=== PATIENT | male | born 1970 | race Caucasian/White ===

== ENCOUNTER 2016-04-30 11:30 | Emergency (ER) | payer OTHER ==
[~2016-04-30] VITALS: Ht 175.3 cm; Wt 72.6 kg
[~2016-04-30 11:30] MED LIST: ACETAMINOPHEN325 M1 PO; APIDRA; BACTRIM DS TAB1 EACH PO; BACTRIM PO; BENTYL20 MG PO; CIPRO; CLEOCIN HCL300 MG PO; CLONIDINE0.1 PO; COLACE 100 MG100 MG PO; COLACE100 MG PO; COZAAR 50 MG TA50 M2 PO; GABAPENTIN 100100 MG PO; GABAPENTIN600 M1 PO; GRALISE300 MG PO; GRALISE600 MG PO; HUMALIN R; HUMALOG MI100 UNIT/6 SQ; HUMALOG100 UNIT/1; HUMALOG100 UNIT/1 SQ; HUMILIN R; HUMULIN 70100 UNIT/2 SUBQ; HUMULIN R100 UNIT/M SUBQ; HUMULINR100; HYDROCODON-ACE1 EAC5 PO; IBUPROFEN 600600 M1 PO; IBUPROFEN200 M2 PO; KEFLEX500 MG PO; LEVEMIR; LEVEMIR SUBQ; LYRICA 75 MG CA75 MG PO; NEURONTIN 300M300 M2 PO; NEURONTIN300 MG PO; NEURONTIN600 MG PO; NICOTINE TRANSD14 M1; NICOTINE TRANSD21 M1 TD; NORCO 5-325 TA1 EACH PO; NOVOLIN 70100 UNIT/5; NOVOLIN 70100 UNIT/5 SUBQ; NOVOLIN R100 UNIT/3 SUBQ; NOVOLOG100 UNIT/1; NOVOLOG100 UNIT/1 SUBQ; ONDANSETRON HCL4 M2 PO; OXYCODONE HCL 55 MG PO; OXYCODONE HCL5 M1 PO; PENICILLIN VK500 M1 PO; PERCOCET 5-3251 EACH PO; ROXICODONE5 MG PO; TORADOL 10 MG T10 MG PO; TRAMADOL 50 MG50 MG; TYLENOL W/CODEI1 TA2 PO; ULTRAM 50MG TAB50 MG PO; VICODIN; ZOFRAN4 MG PO
[2016-04-30] MEDS ORDERED: LEVEMIR100 UNIT/1 SUBQ (11:43)
[2016-04-30] MEDS ORDERED: CARVEDILOL25 MG PO (11:43)
[2016-04-30 11:54] LABS: HEMATOCRIT 36.2 % (42.0-52.0); HEMOGLOBIN 12.6 gm/dL (14.0-18.0); MCH 29.5 pg (26.0-34.0); MCHC 34.7 % (28.0-37.0); MCV 84.8 fL (80.0-100.0); PLATELET COUNT 246 thou/uL (150-400); RBC 4.27 mil/uL (4.50-6.00); RDW 13.3 % (10.5-14.5)
[2016-04-30 12:04] LABS: MANUAL DIFF YES
[2016-04-30 12:10] LABS: CALCIUM 8.4 mg/dL (8.5-10.1); POTASSIUM 4.3 mmol/L (3.5-5.1)
[2016-04-30 12:17] LABS: ALBUMIN 2.9 g/dL (3.4-5.0); TOTAL BILIRUBIN 0.9 mg/dL (<0.1-1.0)
[2016-04-30 12:24] LABS: ABSOLUTE NEUTROPHILS 8.3 thou/uL (1.4-8.2); PLATELET ESTIMATE NORMAL; TOTAL CELL COUNT 100
[2016-04-30] MEDS ORDERED: LIDODERM 5%1 PATC1 TRANSDERM (12:44)
[2016-04-30] MEDS ORDERED: INDOMETHACIN 2525 MG PO (12:44)
== END 2016-04-30 13:00 | disposition home or self-care (01) ==
LOC: ER 11:30
PROVIDERS: Emergency Medicine
DX: M54.16 Radiculopathy, lumbar region (principal); I10 Essential (primary) hypertension; E10.9 Type 1 diabetes mellitus without complications; Z90.49 Acquired absence of other specified parts of digestive tract; F17.210 Nicotine dependence, cigarettes, uncomplicated; F12.90 Cannabis use, unspecified, uncomplicated; Z88.8 Allergy status to other drugs, medicaments and biological substances; Z91.018 Allergy to other foods

== ENCOUNTER 2017-02-17 07:41 | Emergency (ER) | payer OTHER ==
[~2017-02-17] VITALS: Ht 175.3 cm; Wt 72.6 kg
[~2017-02-17 07:41] MED LIST changes: +AMITRIPTYLINE H50 M3 PO; +CARVEDILOL25 MG PO; +INDOMETHACIN 2525 MG PO; +LEVEMIR100 UNIT/1 SUBQ; +LIDODERM 5%1 PATC1 TRANSDERM; +METFORMIN HCL500 MG PO
[2017-02-17] MEDS ORDERED: GABAPENTIN 100100 MG PO (08:25)
[2017-02-17 08:26] LABS: URINE BILIRUBIN NEGATIVE (Negative); URINE BLOOD 2+ (Negative); URINE COLOR YELLOW; URINE GLUCOSE-RANDOM* 2+ (Negative); URINE KETONES NEGATIVE (Negative); URINE LEUKOCYTES-REFLEX NEGATIVE (Negative); URINE PROTEIN (DIPSTICK) 2+ (Negative); URINE UROBILINOGEN 0.2 E.U./dl (0.2-1.0)
[2017-02-17 08:49] LABS: CASTS None Seen /LPF (None Seen); CRYSTALS None Seen /LPF (None Seen); SQUAMOUS 0-3 Few /LPF (0-3); URINE RBC 0-2 Rare /HPF (0-2); URINE WBC-REFLEX 0-5 Rare /HPF (0-5)
[2017-02-17 10:02] LABS: ABSOLUTE NEUTROPHILS 3.6 thou/uL (1.4-8.2); BASOPHILS 0.5 % (0.0-2.0); EOSINOPHILS 5.5 % (0.0-3.0); HEMATOCRIT 30.6 % (42.0-52.0); HEMOGLOBIN 10.5 gm/dL (14.0-18.0); LYMPHOCYTES 20.5 % (24.0-44.0); MANUAL DIFF NO; MCH 28.8 pg (26.0-34.0); MCHC 34.2 g/dL (28.0-37.0); MCV 84.3 fL (80.0-100.0); MONOCYTES 7.8 % (1.0-8.0); PLATELET COUNT 123 thou/uL (150-400); POLYS 65.7 % (36.0-66.0); RBC 3.63 mil/uL (4.50-6.00); RDW 16.2 % (10.5-14.5); WBC 5.4 thou/uL (4.0-11.0)
[2017-02-17 10:10] LABS: CALCIUM 8.6 mg/dL (8.5-10.1); CREATININE 1.2 mg/dL (0.7-1.3); POTASSIUM 4.9 mmol/L (3.5-5.1)
[2017-02-17 10:16] LABS: ALBUMIN 2.4 g/dL (3.4-5.0); TOTAL BILIRUBIN 0.3 mg/dL (<0.1-1.0); TOTAL PROTEIN 6.4 g/dL (6.4-8.2)
[2017-02-17] MEDS ORDERED: OMEPRAZOLE20 M1 PO (11:22)
[2017-02-18] MEDS ORDERED: LEVEMIR SUBQ (07:36)
== END 2017-02-17 11:53 | disposition home or self-care (01) ==
LOC: ER 07:41
PROVIDERS: Emergency Medicine
DX: R10.13 Epigastric pain (principal); I10 Essential (primary) hypertension; E10.40 Type 1 diabetes mellitus with diabetic neuropathy, unspecified; E10.621 Type 1 diabetes mellitus with foot ulcer; L97.529 Non-pressure chronic ulcer of other part of left foot with unspecified severity; L97.519 Non-pressure chronic ulcer of other part of right foot with unspecified severity; F17.210 Nicotine dependence, cigarettes, uncomplicated; Z86.19 Personal history of other infectious and parasitic diseases; Z90.49 Acquired absence of other specified parts of digestive tract; Z88.8 Allergy status to other drugs, medicaments and biological substances; Z91.018 Allergy to other foods

== ENCOUNTER 2017-02-18 07:18 | Inpatient (IN) | payer OTHER ==
[~2017-02-18] VITALS: Ht 175.3 cm; Wt 72.6 kg
[~2017-02-18 07:18] MED LIST changes: +OMEPRAZOLE20 M1 PO
[2017-02-18 07:21] VITALS: BP 210/107
[2017-02-18] MEDS ORDERED: LEVEMIR SUBQ (07:36)
[2017-02-18 07:51] LABS: ABSOLUTE NEUTROPHILS 4.4 thou/uL (1.4-8.2); BASOPHILS 0.5 % (0.0-2.0); HEMATOCRIT 32.1 % (42.0-52.0); LYMPHOCYTES 17.2 % (24.0-44.0); MCH 29.2 pg (26.0-34.0); MCHC 34.4 g/dL (28.0-37.0); MCV 84.9 fL (80.0-100.0); MONOCYTES 8.6 % (1.0-8.0); PLATELET COUNT 136 thou/uL (150-400); POLYS 68.7 % (36.0-66.0); RBC 3.78 mil/uL (4.50-6.00); WBC 6.5 thou/uL (4.0-11.0)
[2017-02-18 07:56] LABS: MANUAL DIFF NO
[2017-02-18 08:04] LABS: CALCIUM 8.6 mg/dL (8.5-10.1); CREATININE 1.3 mg/dL (0.7-1.3); POTASSIUM 4.6 mmol/L (3.5-5.1)
[2017-02-18 08:05] LABS: URINE BILIRUBIN NEGATIVE (Negative); URINE BLOOD 2+ (Negative); URINE COLOR YELLOW; URINE GLUCOSE-RANDOM* 3+ (Negative); URINE KETONES NEGATIVE (Negative); URINE LEUKOCYTES-REFLEX NEGATIVE (Negative); URINE PROTEIN (DIPSTICK) 1+ (Negative); URINE UROBILINOGEN 0.2 E.U./dl (0.2-1.0)
[2017-02-18 08:07] LABS: ALBUMIN 2.6 g/dL (3.4-5.0); TOTAL BILIRUBIN 0.3 mg/dL (<0.1-1.0); TOTAL PROTEIN 6.9 g/dL (6.4-8.2)
[2017-02-18 08:18] LABS: CASTS None Seen /LPF (None Seen); SQUAMOUS 0-3 Few /LPF (0-3)
[2017-02-18 08:19] LABS: CRYSTALS None Seen /LPF (None Seen); URINE RBC 3-10 Few /HPF (0-2); URINE WBC-REFLEX 0-5 Rare /HPF (0-5)
[2017-02-18 08:19] LABS: ABG SAMPLE TYPE VENOUS; BE(vivo) 0.8 mmol/L (-2 to +3); HCO3 25.2 mmol/L (22.0-26.0); LACTATE 2.33 mmol/L (0.5-2.0); O2(CT) 15.9 mL/dL (15.0-23.0); O2Hb VENOUS 93.7 (65.0-85.0); PCO2 VENOUS 39.5 mmHg (41.0-51.0); PO2 VENOUS 95.6 mmHg (35.0-45.0); sO2 VENOUS 97.4 % (65.0-85.0); tCO2 26.4 mmol/L (24.0-30.0)
[2017-02-18 09:47] VITALS: BP 166/85
[2017-02-18 10:00] VITALS: BP 166/85
[2017-02-18 10:30] VITALS: BP 187/100
[2017-02-18 11:56] LABS: AMP/METHAMP Negative (Negative); BARBITURATES Negative (Negative); BENZODIAZEPINES Negative (Negative); COCAINE Negative (Negative); METHADONE Negative (Negative); OPIATES Negative (Negative); PCP Negative (Negative); THC Negative (Negative)
[2017-02-18 15:56] VITALS: BP 138/107
[2017-02-18 18:10] LABS: GLYCOHEMOGLOBIN (HGB A1C) 9.4 % (4.8-5.6)
[2017-02-19 03:28] VITALS: BP 175/92
[2017-02-19 06:34] LABS: ALBUMIN 2.3 g/dL (3.4-5.0); CALCIUM 8.4 mg/dL (8.5-10.1); CREATININE 1.3 mg/dL (0.7-1.3); MAGNESIUM 1.7 mg/dL (1.8-2.4); POTASSIUM 4.8 mmol/L (3.5-5.1); TOTAL BILIRUBIN 0.3 mg/dL (<0.1-1.0); TOTAL PROTEIN 6.1 g/dL (6.4-8.2)
[2017-02-19 06:36] LABS: CHOLESTEROL 88 mg/dL (<200)
[2017-02-19 06:37] LABS: ABSOLUTE NEUTROPHILS 4.6 thou/uL (1.4-8.2); BASOPHILS 0.6 % (0.0-2.0); EOSINOPHILS 7.9 % (0.0-3.0); HEMATOCRIT 29.3 % (42.0-52.0); HEMOGLOBIN 10.5 gm/dL (14.0-18.0); LYMPHOCYTES 22.9 % (24.0-44.0); MCH 30.5 pg (26.0-34.0); MCHC 35.8 g/dL (28.0-37.0); MCV 85.1 fL (80.0-100.0); MONOCYTES 7.5 % (1.0-8.0); PLATELET COUNT 156 thou/uL (150-400); POLYS 61.1 % (36.0-66.0); RBC 3.44 mil/uL (4.50-6.00); RDW 16.3 % (10.5-14.5); WBC 7.9 thou/uL (4.0-11.0)
[2017-02-19 06:42] LABS: MANUAL DIFF NO
[2017-02-19 07:53] VITALS: BP 175/100
[2017-02-19 09:15] LABS: AMP/METHAMP Negative (Negative); BARBITURATES Negative (Negative); BENZODIAZEPINES Negative (Negative); COCAINE Negative (Negative); METHADONE Negative (Negative); OPIATES POSITIVE (Negative); PCP Negative (Negative); THC Negative (Negative)
[2017-02-19] MEDS ORDERED: DOXYCYCLINE 10100 MG PO ×2 (15:48→15:52)
[2017-02-19] MEDS ORDERED: VANCOMYCIN HCL10 GM PO (15:49)
[2017-02-19] MEDS ORDERED: LEVEMIR SUBQ ×2 (15:49→15:52)
[2017-02-19 15:57] VITALS: BP 142/61
[2017-02-19] MEDS ORDERED: GABAPENTIN 100100 MG PO (16:28)
[2017-02-19] MEDS ORDERED: OXYCODONE HCL10 MG PO ×2 (16:28→16:30)
[2017-02-19 18:15] VITALS: BP 142/61
== END 2017-02-19 19:46 | disposition home or self-care (01) | DRG 371 ==
LOC: ER 07:18 → EROBS 08:49 → 4E 10:02
PROVIDERS: Emergency Medicine; Hospitalist; Nurse Practitioner; Nurse Practitioner Family
DX: A04.72 Enterocolitis due to Clostridium difficile, not specified as recurrent (principal); K85.90 Acute pancreatitis without necrosis or infection, unspecified; I16.1 Hypertensive emergency; E44.0 Moderate protein-calorie malnutrition; L03.115 Cellulitis of right lower limb; K21.9 Gastro-esophageal reflux disease without esophagitis; I10 Essential (primary) hypertension; E10.40 Type 1 diabetes mellitus with diabetic neuropathy, unspecified; E10.65 Type 1 diabetes mellitus with hyperglycemia; F17.210 Nicotine dependence, cigarettes, uncomplicated; Z90.49 Acquired absence of other specified parts of digestive tract; Z86.19 Personal history of other infectious and parasitic diseases; Z88.8 Allergy status to other drugs, medicaments and biological substances; Z91.018 Allergy to other foods; Z68.23 Body mass index [BMI] 23.0-23.9, adult; Z79.4 Long term (current) use of insulin; Z91.11 Patient's noncompliance with dietary regimen
CPT/HCPCS: 10084

== ENCOUNTER 2017-02-23 16:11 | Emergency (ER) | payer OTHER ==
[~2017-02-23] VITALS: Ht 175.3 cm; Wt 72.6 kg
--- NOTE | ~2017-02-23 | EKG ---
[address] [place] [address] ELECTROCARDIOGRAM REPORT Name: CONSTANTINO MEJIA ROMELIA Room #: [facility] [id number] Admission: 02/23/17 Attend Phys: Discharge: 02/23/17 Date of : 74 Report #: [id number] THIS REPORT FOR: //name// [facility] ED Test Date: 2017-02-23 Test Time: 16:39:21 Pat Name: CONSTANTINO MEJIA Department: Room: Gender: M Special Librarian: CWEILAUREN : 1970 Requested By: Luca Viera Order Number: [id number] MD: Reno Rizvi Measurements Intervals [place] Rate: 92 P: 72 ME: 152 QRS: 43 QRSD: 82 T: 67 QT: 345 QTc: 427 Interpretive Statements Sinus rhythm Probable left atrial enlargement Probable left ventricular hypertrophy Compared to ECG 02/10/2014 09:44:23 No significant changes Electronically Signed On 02-24-2017 7:29:14 CDT by Reno Rizvi [email or web address] <ELECTRONICALLY SIGNED> By: Reno Rizvi MD 02/24/17 0729 38 Reno Rizvi MD /KAROLINA
[~2017-02-23 16:11] MED LIST changes: +DOXYCYCLINE 10100 MG PO; +OXYCODONE HCL10 MG PO; +VANCOMYCIN HCL10 GM PO
[2017-02-23 17:50] LABS: BASOPHILS 0.4 % (0.0-2.0); EOSINOPHILS 5.3 % (0.0-3.0); HEMATOCRIT 33.8 % (42.0-52.0); HEMOGLOBIN 11.4 gm/dL (14.0-18.0); LYMPHOCYTES 11.7 % (24.0-44.0); MCH 28.9 pg (26.0-34.0); MCHC 33.8 g/dL (28.0-37.0); MCV 85.4 fL (80.0-100.0); MONOCYTES 5.8 % (1.0-8.0); PLATELET COUNT 169 thou/uL (150-400); POLYS 76.8 % (36.0-66.0); RBC 3.95 mil/uL (4.50-6.00); RDW 16.5 % (10.5-14.5); WBC 7.9 thou/uL (4.0-11.0)
[2017-02-23 17:52] LABS: MANUAL DIFF NO
[2017-02-23 18:01] LABS: ANION GAP 1 mmol/L (7-16); BUN 21 mg/dL (7-18); CALCIUM 8.6 mg/dL (8.5-10.1); CHLORIDE 97 mmol/L (98-107); CO2 30 mmol/L (21-32); CREATININE 1.2 mg/dL (0.7-1.3); GLUCOSE 469 mg/dL (74-106); POTASSIUM 4.8 mmol/L (3.5-5.1); SODIUM 128 mmol/L (136-145)
[2017-02-23 18:06] LABS: ALBUMIN 2.5 g/dL (3.4-5.0); ALKALINE PHOSPHATASE 180 U/L (46-116); SGOT 74 U/L (15-37); SGPT 129 U/L (30-65); TOTAL BILIRUBIN 0.4 mg/dL (<0.1-1.0); TOTAL PROTEIN 6.8 g/dL (6.4-8.2); TROPONIN-I < 0.04 ng/mL (<0.06)
[2017-02-23] MEDS ORDERED: BACTRIM DS TAB1 EACH PO (20:21)
[2017-02-23] MEDS ORDERED: MOBIC15 MG PO (20:33)
== END 2017-02-23 21:00 | disposition home or self-care (01) ==
LOC: ER 16:11
PROVIDERS: Physician Assistant
DX: R07.89 Other chest pain (principal); L03.113 Cellulitis of right upper limb; I10 Essential (primary) hypertension; E10.40 Type 1 diabetes mellitus with diabetic neuropathy, unspecified; F17.210 Nicotine dependence, cigarettes, uncomplicated; E10.621 Type 1 diabetes mellitus with foot ulcer; L97.519 Non-pressure chronic ulcer of other part of right foot with unspecified severity; L97.529 Non-pressure chronic ulcer of other part of left foot with unspecified severity; Z90.49 Acquired absence of other specified parts of digestive tract; Z88.4 Allergy status to anesthetic agent; Z91.02 Food additives allergy status; Z88.8 Allergy status to other drugs, medicaments and biological substances

== ENCOUNTER 2017-08-03 19:04 | Inpatient (IN) | payer OTHER ==
[~2017-08-03] VITALS: Ht 175.3 cm; Wt 95.3 kg
--- NOTE | ~2017-08-03 | EKG ---
[address] [address] ELECTROCARDIOGRAM REPORT Name: CONSTANTINO MEJIA Room #: 411-P [facility] M.R.#: [id number] Admission: 08/03/17 Attend Phys: Seth Madison MD Discharge: Date of : 74 Report #: [id number] THIS REPORT FOR: //name// [facility] ED Test Date: 2017-08-03 Test Time: 19:16:48 Pat Name: CONSTANTINO MEJIA Department: Room: 411 Gender: M Retail Personal Banker: KEYUR : 1970 Requested By: Lala Hui Order Number: [id number] MD: Reno Rizvi Measurements Intervals [place] Rate: 85 P: 53 MD: 168 QRS: 35 QRSD: 76 T: 41 QT: 361 QTc: 430 Interpretive Statements Sinus rhythm Probable left atrial enlargement Baseline wander in lead(s) V1,V3 Compared to ECG 02/23/2017 16:39:21 No significant changes Electronically Signed On 08-04-2017 9:58:31 CDT by Reno Rizvi [email or web address] <ELECTRONICALLY SIGNED> By: Reno Rizvi MD 08/04/17 0958 15 15 Reno Rizvi MD /EPI
--- NOTE | ~2017-08-03 | HC ---
[facility] [place] [address] CONSULTATION Name: CONSTANTINO MEJIA Room #: [facility]- ADM IN M.R.#: [id number] Admission: 08/03/17 Attend Phys: Seth Madison MD Discharge: Date of : 74 Report #: [id number] THIS REPORT FOR: //name// CC: NO PCP Seth Madison HISTORY OF PRESENT ILLNESS: The patient is a 47-year-old male who was admitted from a long-term care facility for drug utilization and substance abuse. The patient has a history of multiple medical comorbidities and reports that he was in retirement and made him come to the facility where he was at. The patient reportedly was injecting 4 oxycodone pills. His most recent residence is at [facility]. PAST MEDICAL HISTORY: Significant for hypertension, hepatitis C, uncontrolled diabetes. He reports hemoglobin A1c's last year in the 13s. Chronic pancreatitis and substance abuse. He reports a history of an extensor tendon rupture of the left upper extremity, diabetic neuropathy, opioid overdose. ALLERGIES: INSULIN, LISINOPRIL, PROPOXYPHENE. PHYSICAL EXAMINATION: VITAL SIGNS: Temperature 36.1, pulse 87, respirations 16, BP 138/78. GENERAL: The patient is alert, oriented, answering questions appropriately. EXTREMITIES: On examination, the patient reports no acute abnormalities in the upper extremities. Pelvis is stable to AP and lateral compression. He is nontender with gentle rotation of the hips. Localizes tenderness primarily on the lower spine, primarily in the paraspinal area, extending into the gluteal and lateral hip. He reports that this does radiate into the inner thigh on occasion, reports that it does not really extend below the knee, although he does have bilateral stocking type peripheral neuropathy and multiple healed sores in varying degrees of healing throughout the lower extremities. He reports diminished sensation to light touch in the feet consistent with his diabetic peripheral neuropathy. Diminished pulses were noted. Capillary refill approximately 2 seconds. He is able to stand, has difficulty with heel and toe walking. No obvious motor deficit is noted in the lower extremities when tested throughout. He is hyporeflexic symmetrically. LABORATORY DATA: Reviewed. IMAGING: MRI of the lumbosacral spine reveals severe disk desiccation and loss of disk height at L5-S1, some retrolisthesis of 5 on 1 is noted of approximately 5 mm. Diffuse posterior disk bulging is noted in this region. Moderate facet arthrosis with severe neural foraminal stenosis. IMPRESSION: Lumbar spondylosis, L5-S1 with neural foraminal stenosis. PLAN: We reviewed potential treatment options with the patient. At this point, [address] [address] CONSULTATION Name: CONSTANTINO MEJIA Room #: 411-P [facility] IN M.R.#: [id number] Admission: 08/03/17 Attend Phys: Seth Madison MD Discharge: Date of : 74 Report #: [id number] I would recommend physical therapy as well as a pain management consultation to see if they think he would be a candidate for an epidural injection. With his history and uncontrolled diabetes, I think nonoperative management would be the safest course for him. Hopefully, these symptoms can be brought under control with this. If he failed to have improvement with these measures, I will get my partner, Dr. Prince, evaluate him for potential operative intervention. I would recommend social work continue to kiln firer helper this individual in meeting his needs post-hospitalization. By: 0739 [id number] Gonzalo Schwartz MD /nt
--- NOTE | ~2017-08-03 | 2DMMODE ---
[facility] [place] [address] 2 D/M-MODE ECHOCARDIOGRAM Name: CONSTANTINO MEJIA Room #: 411-P ADM IN M.R.#: [id number] Admission: 08/03/17 Attend Phys: Seth Madison MD Discharge: Date of : 74 Date of Service: 08/16/17 1042 Report #: [id number] THIS REPORT FOR: //name// APPROVED REPORT Study performed: 08/16/2017 09:54:36 EXAM: Comprehensive 2D, Doppler, and color-flow Echocardiogram BSA: 2.11 2D Dimensions RVDd: 38.93 mm LVEF(%): 69.19 (>50%) IVSd: 13.13 (7-11mm) LVOT Diam: 19.07 (18-24mm) LVDd: 40.59 mm PWd: 12.35 (7-11mm) Ascending Ao: 25.87 (22-36mm) LVDs: 25.00 (25-40mm) Aortic Root: 31.70 mm IVC: 14.00 mm Santana's LVEF: 69.19 % Volumes Left Atrial Volume (Systole) Single Plane 4CH: 87.84 mL Single Plane 2CH: 55.54 mL LA ESV Index: 38.00 mL/m2 Aortic Valve AoV Peak Momo.: 1.34 m/s AO Peak Gr.: 7.22 mmHg LVOT Max P.83 mmHg LVOT Max V: 0.98 m/s GIULIANA Vmax: 2.08 cm2 Mitral Valve E/A Ratio: 1.3 MV Decel. Time: 227.81 ms MV E Max Momo.: 1.37 m/s MV A Momo.: 1.05 m/s MV PHT: 66.06 ms IVRT: 69.20 ms Pulmonary Valve PV Peak Momo.: 1.04 m/s PV Peak Gr.: 4.30 mmHg Pulmonary Vein P Vein S: 0.61 m/s P Vein A: 0.25 m/s [facility] [address] [place] [address] 2 D/M-MODE ECHOCARDIOGRAM Name: CONSTANTINO MEJIA Room #: 411-P [facility] IN ..#: [id number] Admission: 08/03/17 Attend Phys: Seth Madison MD Discharge: Date of : 74 Date of Service: 08/16/17 1042 Report #: [id number] P Vein D: 0.48 m/s P Vein A Dur.: 101.5 msec P Vein S/D Ratio: 1.27 Tricuspid Valve TR Peak Momo.: 2.90 m/s TR Peak Gr.: 33.55 mmHg PA Pressure: 39.00 mmHg Left Ventricle The left ventricle is normal size. There is normal LV segmental wall motion. Mild concentric left ventricular hypertrophy. Left ventricular systolic function is hyperdynamic. LVEF is 65-70%. Grade II - pseudonormal filling dynamics. Right Ventricle The right ventricle is normal size. The right ventricular systolic function is normal. Atria Left atrium is dilated. Right atrium is at the upper limits of normal. Aortic Valve The aortic valve is normal in structure. No aortic regurgitation is present. There is no aortic valvular stenosis. Mitral Valve Mild mitral annular calcification Mild mitral regurgitation. No evidence of mitral valve stenosis. Tricuspid Valve The tricuspid valve is normal in structure. There is trace tricuspid regurgitation. Estimated PAP 40 mmHg. There is mild pulmonary hypertension. Pulmonic Valve The pulmonary valve is normal in structure. Trace pulmonic regurgitation. Great Vessels The aortic root is normal in size. IVC is normal in size and collapses >50% with inspiration. Pericardium Trace pericardial effusion. [facility] [address] [place] [address] 2 D/M-MODE ECHOCARDIOGRAM Name: CONSTANTINO MEJIA Room #: 411-P ADM IN M.R.#: [id number] Admission: 08/03/17 Attend Phys: Seth Madison MD Discharge: Date of : 74 Date of Service: 08/16/17 1042 Report #: [id number] <Conclusion> Left ventricular systolic function is hyperdynamic. There is normal LV segmental wall motion. Mild concentric LVH LVEF is 65-70%. Grade II - pseudonormal filling dynamics. The aortic valve is normal in structure. No aortic regurgitation or stenosis Mild mitral annular calcification. Mild mitral regurgitation. There is trace tricuspid regurgitation. Estimated pulmonary artery pressure of 40 mmHg. Trace pericardial effusion. <ELECTRONICALLY SIGNED> By: Raymond De La Garza MD, [facility] 08/16/17 104 41 41 Raymond De La Garza MD, FACC /INF
[~2017-08-03 19:04] MED LIST changes: +MOBIC15 MG PO
[2017-08-03 19:11] VITALS: BP 150/79
[2017-08-03 19:57] LABS: ABSOLUTE NEUTROPHILS 3.7 thou/uL (1.4-8.2); BASOPHILS 1.2 % (0.0-2.0); EOSINOPHILS 8.8 % (0.0-3.0); HEMATOCRIT 29.2 % (42.0-52.0); HEMOGLOBIN 10.1 gm/dL (14.0-18.0); LYMPHOCYTES 17.7 % (24.0-44.0); MCH 29.8 pg (26.0-34.0); MCHC 34.7 g/dL (28.0-37.0); MONOCYTES 8.8 % (1.0-8.0); PLATELET COUNT 173 thou/uL (150-400); POLYS 63.5 % (36.0-66.0); RDW 16.2 % (10.5-14.5); WBC 5.8 thou/uL (4.0-11.0)
[2017-08-03 20:06] LABS: ANION GAP 2 mmol/L (7-16); BUN 25 mg/dL (7-18); CALCIUM 8.7 mg/dL (8.5-10.1); CHLORIDE 103 mmol/L (98-107); CO2 29 mmol/L (21-32); CREATININE 1.3 mg/dL (0.7-1.3); GLUCOSE 351 mg/dL (74-106); POTASSIUM 5.1 mmol/L (3.5-5.1); SODIUM 134 mmol/L (136-145)
[2017-08-03 20:11] LABS: ALBUMIN 2.5 g/dL (3.4-5.0); DIRECT BILIRUBIN 0.1 mg/dL (<0.1-0.3); LIPASE 96 U/L (73-393); SALICYLATE < 2.8 mg/dL (2.8-20.0); SGOT 61 U/L (15-37); SGPT 77 U/L (30-65); TOTAL BILIRUBIN 0.3 mg/dL (<0.1-1.0); TOTAL PROTEIN 6.4 g/dL (6.4-8.2)
[2017-08-03 20:29] LABS: AMP/METHAMP Negative (Negative); BARBITURATES Negative (Negative); BENZODIAZEPINES Negative (Negative); COCAINE Negative (Negative); METHADONE Negative (Negative); OPIATES POSITIVE (Negative); PCP Negative (Negative)
[2017-08-04 04:52] LABS: HEMATOCRIT 28.5 % (42.0-52.0); HEMOGLOBIN 9.8 gm/dL (14.0-18.0); MCH 29.7 pg (26.0-34.0); MCHC 34.4 g/dL (28.0-37.0); MCV 86.3 fL (80.0-100.0); RBC 3.31 mil/uL (4.50-6.00); RDW 16.1 % (10.5-14.5); WBC 4.1 thou/uL (4.0-11.0)
[2017-08-04 05:02] LABS: ALBUMIN 2.2 g/dL (3.4-5.0); CALCIUM 8.2 mg/dL (8.5-10.1); CREATININE 1.4 mg/dL (0.7-1.3); POTASSIUM 4.8 mmol/L (3.5-5.1); TOTAL BILIRUBIN 0.2 mg/dL (<0.1-1.0); TOTAL PROTEIN 5.9 g/dL (6.4-8.2)
[2017-08-04 07:57] VITALS: BP 147/84
[2017-08-04 09:38] VITALS: BP 146/65
[2017-08-04] MEDS ORDERED: NOVOLOG100 UNIT/1 SUBQ (10:25)
[2017-08-04] MEDS ORDERED: LEVEMIR SUBQ (10:29)
[2017-08-04 17:06] VITALS: BP 180/88
[2017-08-04 19:57] VITALS: BP 153/80
[2017-08-05 04:26] VITALS: BP 164/61
[2017-08-05 06:23] LABS: ABSOLUTE NEUTROPHILS 3.5 thou/uL (1.4-8.2); BASOPHILS 1.2 % (0.0-2.0); EOSINOPHILS 8.8 % (0.0-3.0); HEMATOCRIT 29.4 % (42.0-52.0); HEMOGLOBIN 10.5 gm/dL (14.0-18.0); MCH 30.5 pg (26.0-34.0); MCHC 35.8 g/dL (28.0-37.0); MCV 85.3 fL (80.0-100.0); PLATELET COUNT 180 thou/uL (150-400); RBC 3.45 mil/uL (4.50-6.00); RDW 16.4 % (10.5-14.5); WBC 5.5 thou/uL (4.0-11.0)
[2017-08-05 06:25] LABS: CALCIUM 8.7 mg/dL (8.5-10.1); CREATININE 1.2 mg/dL (0.7-1.3); POTASSIUM 4.3 mmol/L (3.5-5.1)
[2017-08-05 08:08] VITALS: BP 138/82
[2017-08-05 16:14] VITALS: BP 135/73
[2017-08-05 21:10] VITALS: BP 140/77
[2017-08-06 04:00] VITALS: BP 106/68
[2017-08-06 08:00] VITALS: BP 97/55
[2017-08-06 20:00] VITALS: BP 162/82
[2017-08-07 04:00] VITALS: BP 146/73
[2017-08-07 06:20] LABS: BASOPHILS 0.9 % (0.0-2.0); EOSINOPHILS 12.9 % (0.0-3.0); HEMATOCRIT 30.2 % (42.0-52.0); HEMOGLOBIN 10.6 gm/dL (14.0-18.0); LYMPHOCYTES 20.6 % (24.0-44.0); MCHC 35.1 g/dL (28.0-37.0); MCV 85.4 fL (80.0-100.0); MONOCYTES 8.5 % (1.0-8.0); PLATELET COUNT 166 thou/uL (150-400); POLYS 57.1 % (36.0-66.0); RBC 3.54 mil/uL (4.50-6.00); RDW 15.8 % (10.5-14.5); WBC 5.3 thou/uL (4.0-11.0)
[2017-08-07 06:42] LABS: CALCIUM 9.4 mg/dL (8.5-10.1); CREATININE 1.2 mg/dL (0.7-1.3); POTASSIUM 4.7 mmol/L (3.5-5.1)
[2017-08-07 08:15] VITALS: BP 180/93
[2017-08-07 17:13] VITALS: BP 177/89
[2017-08-08 05:24] VITALS: BP 189/104
[2017-08-08 08:38] VITALS: BP 193/97
[2017-08-08 10:10] VITALS: BP 173/89
[2017-08-08 16:00] VITALS: BP 165/79
[2017-08-08 20:00] VITALS: BP 154/65
[2017-08-09 04:00] VITALS: BP 176/83
[2017-08-09 05:58] LABS: ABSOLUTE NEUTROPHILS 2.8 thou/uL (1.4-8.2); BASOPHILS 0.7 % (0.0-2.0); EOSINOPHILS 13.1 % (0.0-3.0); HEMATOCRIT 30.6 % (42.0-52.0); HEMOGLOBIN 11.1 gm/dL (14.0-18.0); LYMPHOCYTES 22.6 % (24.0-44.0); MCH 30.5 pg (26.0-34.0); MCHC 36.2 g/dL (28.0-37.0); MCV 84.3 fL (80.0-100.0); MONOCYTES 7.2 % (1.0-8.0); PLATELET COUNT 176 thou/uL (150-400); POLYS 56.4 % (36.0-66.0); RBC 3.63 mil/uL (4.50-6.00); RDW 15.7 % (10.5-14.5); WBC 4.9 thou/uL (4.0-11.0)
[2017-08-09 06:13] LABS: CALCIUM 8.9 mg/dL (8.5-10.1); CREATININE 1.3 mg/dL (0.7-1.3); POTASSIUM 4.4 mmol/L (3.5-5.1)
[2017-08-09 08:37] VITALS: BP 157/85
[2017-08-09 17:00] VITALS: BP 132/71
[2017-08-09 20:00] VITALS: BP 176/85
[2017-08-10 00:02] VITALS: BP 155/72
[2017-08-10 04:00] VITALS: BP 179/85
[2017-08-10 08:19] VITALS: BP 143/93
[2017-08-10 09:42] LABS: HEMATOCRIT 31.8 % (42.0-52.0); HEMOGLOBIN 11.1 gm/dL (14.0-18.0); MCH 29.7 pg (26.0-34.0); MCHC 34.9 g/dL (28.0-37.0); MCV 84.9 fL (80.0-100.0); RBC 3.75 mil/uL (4.50-6.00); RDW 15.7 % (10.5-14.5); WBC 5.4 thou/uL (4.0-11.0)
[2017-08-10 09:55] LABS: ALBUMIN 2.6 g/dL (3.4-5.0); CALCIUM 9.2 mg/dL (8.5-10.1); CREATININE 1.1 mg/dL (0.7-1.3); POTASSIUM 4.6 mmol/L (3.5-5.1); TOTAL BILIRUBIN 0.4 mg/dL (<0.1-1.0)
[2017-08-10 18:42] VITALS: BP 168/84
[2017-08-10 19:34] VITALS: BP 179/96
[2017-08-11 05:30] VITALS: BP 138/78
[2017-08-11 06:11] LABS: GLYCOHEMOGLOBIN (HGB A1C) 7.7 % (4.8-5.6)
[2017-08-11 07:10] VITALS: BP 178/89
[2017-08-11 07:43] LABS: CALCIUM 8.3 mg/dL (8.5-10.1); CREATININE 1.8 mg/dL (0.7-1.3); POTASSIUM 5.2 mmol/L (3.5-5.1)
[2017-08-11 11:31] VITALS: BP 111/60
[2017-08-11 15:14] VITALS: BP 101/55
[2017-08-11 20:00] VITALS: BP 124/65
[2017-08-12 04:00] VITALS: BP 160/87
[2017-08-12 07:55] LABS: CALCIUM 8.7 mg/dL (8.5-10.1); CREATININE 1.7 mg/dL (0.7-1.3); POTASSIUM 5.5 mmol/L (3.5-5.1)
[2017-08-12 07:59] VITALS: BP 139/78
[2017-08-12 21:27] VITALS: BP 167/82
[2017-08-13 09:11] LABS: CALCIUM 8.9 mg/dL (8.5-10.1); CREATININE 1.4 mg/dL (0.7-1.3); POTASSIUM 5.5 mmol/L (3.5-5.1)
[2017-08-13 17:01] VITALS: BP 192/99
[2017-08-13 18:08] VITALS: BP 185/95
[2017-08-13 19:53] VITALS: BP 183/92
[2017-08-14 05:19] VITALS: BP 184/104
[2017-08-14 08:46] VITALS: BP 160/83
[2017-08-14 11:18] LABS: HEMATOCRIT 29.8 % (42.0-52.0); HEMOGLOBIN 10.4 gm/dL (14.0-18.0); MCH 30.1 pg (26.0-34.0); MCHC 34.8 g/dL (28.0-37.0); MCV 86.4 fL (80.0-100.0); RBC 3.45 mil/uL (4.50-6.00); RDW 15.4 % (10.5-14.5); WBC 5.5 thou/uL (4.0-11.0)
[2017-08-14 11:29] LABS: CALCIUM 8.7 mg/dL (8.5-10.1); CREATININE 1.3 mg/dL (0.7-1.3); POTASSIUM 4.2 mmol/L (3.5-5.1)
[2017-08-14 15:25] LABS: ALBUMIN 2.7 g/dL (3.4-5.0); DIRECT BILIRUBIN 0.1 mg/dL (<0.1-0.3); TOTAL BILIRUBIN 0.4 mg/dL (<0.1-1.0); TOTAL PROTEIN 7.1 g/dL (6.4-8.2)
[2017-08-14 15:26] LABS: INR 1.1; PROTIME 10.9 Seconds (9.3-11.4)
[2017-08-14 16:48] VITALS: BP 173/96
[2017-08-14 20:00] VITALS: BP 203/100
[2017-08-15 04:00] VITALS: BP 174/99
[2017-08-15 05:43] LABS: HEMATOCRIT 30.2 % (42.0-52.0); HEMOGLOBIN 10.6 gm/dL (14.0-18.0); MCHC 35.2 g/dL (28.0-37.0); MCV 85.3 fL (80.0-100.0); RBC 3.54 mil/uL (4.50-6.00); RDW 15.2 % (10.5-14.5)
[2017-08-15 05:57] LABS: CREATININE 1.4 mg/dL (0.7-1.3); POTASSIUM 4.2 mmol/L (3.5-5.1)
[2017-08-15 09:37] VITALS: BP 168/93
[2017-08-15 17:12] VITALS: BP 138/68
[2017-08-15 19:50] LABS: URINE BILIRUBIN NEGATIVE (Negative); URINE BLOOD 2+ (Negative); URINE CLARITY CLEAR; URINE COLOR YELLOW; URINE GLUCOSE-RANDOM* NEGATIVE (Negative); URINE KETONES NEGATIVE (Negative); URINE LEUKOCYTES-REFLEX NEGATIVE (Negative); URINE NITRITE-REFLEX NEGATIVE (Negative); URINE PROTEIN (DIPSTICK) 3+ (Negative); URINE SPECIFIC GRAVITY 1.025 (1.005-1.035); URINE UROBILINOGEN 0.2 E.U./dl (0.2-1.0)
[2017-08-15 20:00] LABS: BACTERIA-REFLEX None Seen /HPF (None Seen); CASTS None Seen /LPF (None Seen); CRYSTALS None Seen /LPF (None Seen); SQUAMOUS 0-3 Few /LPF (0-3); URINE RBC 3-10 Few /HPF (0-2); URINE WBC-REFLEX 0-5 Rare /HPF (0-5)
[2017-08-15 20:42] VITALS: BP 195/91
[2017-08-16 04:48] VITALS: BP 172/87
[2017-08-16 08:00] VITALS: BP 144/74
[2017-08-16 08:09] LABS: HEMATOCRIT 30.9 % (42.0-52.0); HEMOGLOBIN 10.9 gm/dL (14.0-18.0); MCH 30.1 pg (26.0-34.0); MCHC 35.2 g/dL (28.0-37.0); MCV 85.6 fL (80.0-100.0); RBC 3.61 mil/uL (4.50-6.00); RDW 15.1 % (10.5-14.5)
[2017-08-16 08:13] LABS: CALCIUM 8.8 mg/dL (8.5-10.1); CREATININE 1.4 mg/dL (0.7-1.3); MAGNESIUM 1.9 mg/dL (1.8-2.4); POTASSIUM 4.7 mmol/L (3.5-5.1)
[2017-08-16] MEDS ORDERED: BACLOFEN 10MG T10 MG PO (12:23)
[2017-08-16] MEDS ORDERED: EFFEXOR XR75 MG PO (12:24)
[2017-08-16] MEDS ORDERED: COZAAR 25 MG TA25 M1 PO (12:24)
[2017-08-16] MEDS ORDERED: LASIX 40 MG TAB40 M1 PO (12:28)
[2017-08-16 15:13] VITALS: BP 144/74
[2017-08-16 16:04] VITALS: BP 129/56
[2017-08-17 23:10] LABS: CREATININE (ALB/CR) 62.1 mg/dL (Not Estab.)
[2017-08-18 16:12] LABS: HAV IgM AB (ANTI-HAV IgM) Negative (Negative); HEPATITIS B SURFACE AG Negative (Negative); HEPATITIS C VIRUS AB >11.0 (0.0-0.9)
== END 2017-08-16 18:46 | disposition home or self-care (01) | DRG 917 ==
LOC: ER 19:04 → 4N 22:02 → EROBS 22:02 → ER 22:02 → 4N 08-04 08:00
PROVIDERS: Emergency Medicine; Hospitalist; Internal Medicine; Nurse Practitioner Family
DX: T40.2X1A Poisoning by other opioids, accidental (unintentional), initial encounter (principal); G92 Toxic encephalopathy; K86.1 Other chronic pancreatitis; N17.9 Acute kidney failure, unspecified; R45.851 Suicidal ideations; F11.20 Opioid dependence, uncomplicated; E11.40 Type 2 diabetes mellitus with diabetic neuropathy, unspecified; I10 Essential (primary) hypertension; M48.07 Spinal stenosis, lumbosacral region; M47.897 Other spondylosis, lumbosacral region; F17.210 Nicotine dependence, cigarettes, uncomplicated; T40.695A Adverse effect of other narcotics, initial encounter; E78.00 Pure hypercholesterolemia, unspecified; E86.0 Dehydration; Z53.29 Procedure and treatment not carried out because of patient's decision for other reasons; M47.27 Other spondylosis with radiculopathy, lumbosacral region; F32.9 Major depressive disorder, single episode, unspecified; B19.20 Unspecified viral hepatitis C without hepatic coma; E87.5 Hyperkalemia; Z90.49 Acquired absence of other specified parts of digestive tract; Z79.899 Other long term (current) drug therapy; Z79.4 Long term (current) use of insulin; Z88.8 Allergy status to other drugs, medicaments and biological substances; Z91.018 Allergy to other foods; Y92.89 Other specified places as the place of occurrence of the external cause; Z59.0 Homelessness
CPT/HCPCS: 10790

== ENCOUNTER 2017-08-19 05:02 | Inpatient (IN) | payer OTHER ==
[~2017-08-19] VITALS: Ht 175.3 cm; Wt 77.1 kg
[2017-08-19] VITALS (7 sets, daily range): BP systolic 159–188; BP diastolic 73–97
--- NOTE | ~2017-08-19 | EKG ---
[address] [place] [address] ELECTROCARDIOGRAM REPORT Name: CONSTANTINO MEJIA Room #: 170-5 ADM IN M.R.#: [id number] Admission: 08/19/17 Attend Phys: Lis Uriarte Discharge: Date of : 74 Report #: [id number] THIS REPORT FOR: //name// [facility] ED Test Date: 2017-08-19 Test Time: 05:15:03 Pat Name: CONSTANTINO MEJIA Department: Room: 170 Gender: M Clinic Director: mary : 1970 Requested By: Lucas Juarez Order Number: [id number] MD: Raymond De La Garza Measurements Intervals [place] Rate: 77 P: 59 [place]: 162 QRS: 34 QRSD: 82 T: 53 QT: 406 QTc: 460 Interpretive Statements Sinus rhythm ST elev, probable normal early repol pattern Compared to ECG 08/03/2017 19:16:48 No significant change was found Electronically Signed On 08-19-2017 8:55:53 CDT by Raymond De La Garza [email or web address] <ELECTRONICALLY SIGNED> By: Raymond De La Garza MD, [facility] 08/19/17 0855 4 Raymond De La Garza MD, [facility] /EPI
[~2017-08-19 05:02] MED LIST changes: +BACLOFEN 10MG T10 MG PO; +COZAAR 25 MG TA25 M1 PO; +EFFEXOR XR75 MG PO; +LASIX 40 MG TAB40 M1 PO
[2017-08-19 05:40] LABS: ABSOLUTE NEUTROPHILS 6.5 thou/uL (1.4-8.2); BASOPHILS 1.3 % (0.0-2.0); EOSINOPHILS 3.6 % (0.0-3.0); HEMATOCRIT 31.7 % (42.0-52.0); HEMOGLOBIN 11.4 gm/dL (14.0-18.0); LYMPHOCYTES 16.8 % (24.0-44.0); MCH 30.1 pg (26.0-34.0); MCHC 35.9 g/dL (28.0-37.0); MCV 83.9 fL (80.0-100.0); MONOCYTES 6.5 % (1.0-8.0); PLATELET COUNT 205 thou/uL (150-400); POLYS 71.8 % (36.0-66.0); RBC 3.78 mil/uL (4.50-6.00); RDW 14.5 % (10.5-14.5); WBC 9.1 thou/uL (4.0-11.0)
[2017-08-19 05:47] LABS: ANION GAP 9 mmol/L (7-16); BUN 25 mg/dL (7-18); CHLORIDE 105 mmol/L (98-107); CO2 25 mmol/L (21-32); CREATININE 1.3 mg/dL (0.7-1.3); GLUCOSE 275 mg/dL (74-106); POTASSIUM 3.6 mmol/L (3.5-5.1); SODIUM 139 mmol/L (136-145)
[2017-08-19 05:56] LABS: ALBUMIN 2.6 g/dL (3.4-5.0); LIPASE 740 U/L (73-393); MAGNESIUM 1.9 mg/dL (1.8-2.4); SGOT 51 U/L (15-37); SGPT 57 U/L (30-65); TOTAL BILIRUBIN 0.8 mg/dL (<0.1-1.0); TOTAL PROTEIN 6.5 g/dL (6.4-8.2); TROPONIN-I < 0.04 ng/mL (<0.06)
[2017-08-19 06:39] LABS: AMP/METHAMP Negative (Negative); BARBITURATES Negative (Negative); BENZODIAZEPINES Negative (Negative); COCAINE Negative (Negative); METHADONE Negative (Negative); OPIATES POSITIVE (Negative); PCP Negative (Negative)
[2017-08-20 03:51] VITALS: BP 166/84
[2017-08-20 06:03] LABS: ALBUMIN 2.5 g/dL (3.4-5.0); CALCIUM 8.2 mg/dL (8.5-10.1); CREATININE 1.3 mg/dL (0.7-1.3); MAGNESIUM 2.2 mg/dL (1.8-2.4); POTASSIUM 3.4 mmol/L (3.5-5.1); TOTAL BILIRUBIN 0.8 mg/dL (<0.1-1.0); TOTAL PROTEIN 5.7 g/dL (6.4-8.2)
[2017-08-20 08:06] VITALS: BP 166/84
[2017-08-20 08:53] VITALS: BP 198/90
[2017-08-20 19:45] VITALS: BP 183/90
[2017-08-21] VITALS: BP 200/120
[2017-08-21 01:40] VITALS: BP 187/102
[2017-08-21 03:44] VITALS: BP 161/85
[2017-08-21 06:27] LABS: ALBUMIN 2.1 g/dL (3.4-5.0); CALCIUM 8.1 mg/dL (8.5-10.1); CREATININE 1.3 mg/dL (0.7-1.3); POTASSIUM 3.6 mmol/L (3.5-5.1); TOTAL BILIRUBIN 0.5 mg/dL (<0.1-1.0); TOTAL PROTEIN 5.5 g/dL (6.4-8.2)
[2017-08-21 07:20] VITALS: BP 185/94
[2017-08-21] MEDS ORDERED: OXYCONTIN15 MG PO (09:26)
[2017-08-21] MEDS ORDERED: COZAAR 50 MG TA50 M1 PO (09:26)
[2017-08-21] MEDS ORDERED: LYRICA 50 MG50 MG PO (09:27)
[2017-08-21] MEDS ORDERED: NEURONTIN 300300 M1 PO (09:27)
[2017-08-21 10:31] VITALS: BP 185/94
[2017-08-21 11:15] VITALS: BP 142/83
== END 2017-08-21 12:02 | disposition home or self-care (01) | DRG 73 ==
LOC: ER 05:02 → 4N 07:39 → EROBS 07:39 → 4N 09:13 → 4W 08-20 18:10
PROVIDERS: Emergency Medicine; Hospitalist
DX: E10.43 Type 1 diabetes mellitus with diabetic autonomic (poly)neuropathy (principal); K85.90 Acute pancreatitis without necrosis or infection, unspecified; F11.20 Opioid dependence, uncomplicated; K31.84 Gastroparesis; R10.9 Unspecified abdominal pain; G89.29 Other chronic pain; I10 Essential (primary) hypertension; F17.210 Nicotine dependence, cigarettes, uncomplicated; K29.70 Gastritis, unspecified, without bleeding; Z88.8 Allergy status to other drugs, medicaments and biological substances; Z79.899 Other long term (current) drug therapy; Z86.19 Personal history of other infectious and parasitic diseases; Z90.49 Acquired absence of other specified parts of digestive tract
CPT/HCPCS: 10047; 10091

== ENCOUNTER 2017-09-05 12:33 | Emergency (ER) | payer OTHER ==
[~2017-09-05] VITALS: Ht 175.3 cm; Wt 79.4 kg
[~2017-09-05 12:33] MED LIST changes: +COZAAR 50 MG TA50 M1 PO; +LYRICA 50 MG50 MG PO; +NEURONTIN 300300 M1 PO; +OXYCONTIN15 MG PO
[2017-09-05] MEDS ORDERED: LYRICA 75 MG CA75 MG PO (12:44)
[2017-09-05 13:10] LABS: URINE BILIRUBIN NEGATIVE (Negative); URINE BLOOD 2+ (Negative); URINE CLARITY CLEAR; URINE COLOR YELLOW; URINE GLUCOSE-RANDOM* 3+ (Negative); URINE KETONES TRACE (Negative); URINE LEUKOCYTES-REFLEX NEGATIVE (Negative); URINE NITRITE-REFLEX NEGATIVE (Negative); URINE PROTEIN (DIPSTICK) 3+ (Negative); URINE SPECIFIC GRAVITY 1.025 (1.005-1.035); URINE UROBILINOGEN 0.2 E.U./dl (0.2-1.0)
[2017-09-05 13:22] LABS: BE(vivo) -0.6 mmol/L (-2 to +3); HCO3 21.5 mmol/L (22.0-26.0); PCO2 29.1 mmHg (35.0-45.0); PO2 102.5 mmHg (80.0-100.0); pH 7.487 (7.360-7.450); sO2 98.1 % (92.0-98.0)
[2017-09-05 13:30] LABS: BACTERIA-REFLEX None Seen /HPF (None Seen); CRYSTALS None Seen /LPF (None Seen); FINE GRANULAR CASTS 4-10 Moderate /LPF (None Seen); HYALINE CASTS >10 Many /LPF (None Seen); SQUAMOUS 0-3 Few /LPF (0-3); URINE WBC-REFLEX 0-5 Rare /HPF (0-5)
[2017-09-05 14:21] LABS: ABSOLUTE NEUTROPHILS 7.6 thou/uL (1.4-8.2); BASOPHILS 0.7 % (0.0-2.0); EOSINOPHILS 2.5 % (0.0-3.0); HEMOGLOBIN 12.3 gm/dL (14.0-18.0); MCH 29.8 pg (26.0-34.0); MONOCYTES 4.2 % (1.0-8.0); POLYS 79.6 % (36.0-66.0); RBC 4.12 mil/uL (4.50-6.00); RDW 14.4 % (10.5-14.5); WBC 9.5 thou/uL (4.0-11.0)
[2017-09-05 14:30] LABS: CALCIUM 8.5 mg/dL (8.5-10.1); CREATININE 1.4 mg/dL (0.7-1.3); POTASSIUM 3.7 mmol/L (3.5-5.1)
[2017-09-05 14:35] LABS: ALBUMIN 2.5 g/dL (3.4-5.0); DIRECT BILIRUBIN 0.2 mg/dL (<0.1-0.3); TOTAL BILIRUBIN 0.6 mg/dL (<0.1-1.0)
[2017-09-05 14:58] LABS: PLATELET COUNT 228 thou/uL (150-400)
[2017-09-05] MEDS ORDERED: BENTYL 20 MG TA20 M1 PO (16:20)
[2017-09-05] MEDS ORDERED: ZOFRAN ODT4 MG PO (16:20)
[2017-09-05] MEDS ORDERED: NAPROSYN500 MG PO (16:20)
== END 2017-09-05 17:30 | disposition home or self-care (01) ==
LOC: ER 12:33
PROVIDERS: Emergency Medicine
DX: E10.40 Type 1 diabetes mellitus with diabetic neuropathy, unspecified (principal); E10.621 Type 1 diabetes mellitus with foot ulcer; R11.10 Vomiting, unspecified; R10.31 Right lower quadrant pain; I10 Essential (primary) hypertension; F17.210 Nicotine dependence, cigarettes, uncomplicated; Z90.49 Acquired absence of other specified parts of digestive tract; Z86.19 Personal history of other infectious and parasitic diseases; Z88.8 Allergy status to other drugs, medicaments and biological substances; Z79.4 Long term (current) use of insulin

== ENCOUNTER 2017-10-05 19:54 | Inpatient (IN) | payer OTHER ==
[~2017-10-05] VITALS: Ht 190.5 cm; Wt 0.5 kg
--- NOTE | ~2017-10-05 | EKG ---
[place] [address] [facility] [place] [address] ELECTROCARDIOGRAM REPORT Name: CONSTANTINO MEJIA Room #: 462-P ADM IN M.R.#: [id number] Admission: 10/05/17 Attend Phys: Ignacio Jaime MD Discharge: Date of : 74 Report #: [id number] THIS REPORT FOR: //name// [facility] ED Test Date: 2017-10-05 Test Time: 19:53:00 Pat Name: CONSTANTINO MEJIA Department: Room: Gender: M Construction Crew Member: KEYUR : 1970 Requested By: Lucas Juarez Order Number: [id number] MD: Raymond De La Garza Measurements Intervals [place] Rate: 97 P: 70 [place]: 158 QRS: 49 QRSD: 77 T: 61 QT: 359 QTc: 456 Interpretive Statements Sinus rhythm Poor R wave progression Baseline wander in lead(s) V2 Compared to ECG 08/19/2017 05:15:03 No significant change was found Electronically Signed On 10-06-2017 8:06:43 CDT by Raymond De La Garza [email or web address] <ELECTRONICALLY SIGNED> By: Raymond De La Garza MD, [facility] 10/06/17805 52 52 Raymond De La Garza MD, [facility] /EPI
[~2017-10-05 19:54] MED LIST changes: +BENTYL 20 MG TA20 M1 PO; +NAPROSYN500 MG PO; +ZOFRAN ODT4 MG PO
[2017-10-05 19:55] VITALS: BP 153/86
[2017-10-05 20:34] LABS: ABSOLUTE NEUTROPHILS 3.5 thou/uL (1.4-8.2); EOSINOPHILS 7.3 % (0.0-3.0); HEMATOCRIT 32.9 % (42.0-52.0); HEMOGLOBIN 11.6 gm/dL (14.0-18.0); LYMPHOCYTES 27.3 % (24.0-44.0); MCH 29.5 pg (26.0-34.0); MCHC 35.2 g/dL (28.0-37.0); MCV 83.9 fL (80.0-100.0); MONOCYTES 7.8 % (1.0-8.0); PLATELET COUNT 183 thou/uL (150-400); POLYS 56.6 % (36.0-66.0); RBC 3.92 mil/uL (4.50-6.00); RDW 14.7 % (10.5-14.5); WBC 6.3 thou/uL (4.0-11.0)
[2017-10-05 20:40] LABS: ANION GAP 7 mmol/L (7-16); BUN 16 mg/dL (7-18); CALCIUM 8.5 mg/dL (8.5-10.1); CHLORIDE 102 mmol/L (98-107); CO2 26 mmol/L (21-32); CREATININE 1.8 mg/dL (0.7-1.3); GLUCOSE 422 mg/dL (74-106); POTASSIUM 3.4 mmol/L (3.5-5.1); SODIUM 135 mmol/L (136-145)
[2017-10-05 20:49] LABS: ALBUMIN 2.6 g/dL (3.4-5.0); MAGNESIUM 1.8 mg/dL (1.8-2.4); SGOT 57 U/L (15-37); SGPT 82 U/L (30-65); TOTAL BILIRUBIN 0.7 mg/dL (<0.1-1.0); TOTAL PROTEIN 6.5 g/dL (6.4-8.2); TROPONIN-I < 0.04 ng/mL (<0.06)
[2017-10-05 20:58] LABS: URINE BILIRUBIN NEGATIVE (Negative); URINE BLOOD 2+ (Negative); URINE CLARITY CLEAR; URINE COLOR YELLOW; URINE GLUCOSE-RANDOM* 3+ (Negative); URINE KETONES NEGATIVE (Negative); URINE LEUKOCYTES-REFLEX NEGATIVE (Negative); URINE NITRITE-REFLEX NEGATIVE (Negative); URINE PROTEIN (DIPSTICK) 3+ (Negative); URINE SPECIFIC GRAVITY 1.025 (1.005-1.035); URINE UROBILINOGEN 0.2 E.U./dl (0.2-1.0)
[2017-10-05 21:03] LABS: SQUAMOUS None Seen /LPF (0-3); URINE RBC 3-10 Few /HPF (0-2); URINE WBC-REFLEX 0-5 Rare /HPF (0-5)
[2017-10-05 21:04] LABS: BACTERIA-REFLEX 1-9 Few /HPF (None Seen); CASTS None Seen /LPF (None Seen); CRYSTALS None Seen /LPF (None Seen)
[2017-10-05 22:26] VITALS: BP 189/90
[2017-10-05 22:50] VITALS: BP 133/72
[2017-10-05 22:53] VITALS: BP 171/94
[2017-10-05] MEDS ORDERED: LYRICA 50 MG50 MG PO (23:28)
[2017-10-05] MEDS ORDERED: NOVOLOG100 UNIT/1 SUBQ (23:30)
[2017-10-06 02:57] VITALS: BP 179/97
[2017-10-06 04:21] LABS: AMP/METHAMP POSITIVE (Negative); BARBITURATES Negative (Negative); BENZODIAZEPINES Negative (Negative); COCAINE Negative (Negative); METHADONE Negative (Negative); OPIATES Negative (Negative); PCP Negative (Negative)
[2017-10-06 06:00] LABS: CREATININE 1.2 mg/dL (0.7-1.3); POTASSIUM 3.8 mmol/L (3.5-5.1)
[2017-10-06 08:00] VITALS: BP 207/120
[2017-10-06 08:07] VITALS: BP 207/146
[2017-10-06 09:15] VITALS: BP 152/78
[2017-10-06 16:00] VITALS: BP 167/88
[2017-10-06 19:30] VITALS: BP 178/100
[2017-10-07 01:43] VITALS: BP 180/95
[2017-10-07 06:45] VITALS: BP 183/96
[2017-10-07 08:00] VITALS: BP 152/73
[2017-10-07 12:41] LABS: CALCIUM 8.1 mg/dL (8.5-10.1); CREATININE 1.2 mg/dL (0.7-1.3)
[2017-10-07 12:46] LABS: ABSOLUTE NEUTROPHILS 5.1 thou/uL (1.4-8.2); BASOPHILS 0.9 % (0.0-2.0); EOSINOPHILS 5.7 % (0.0-3.0); HEMATOCRIT 32.7 % (42.0-52.0); HEMOGLOBIN 11.6 gm/dL (14.0-18.0); LYMPHOCYTES 19.3 % (24.0-44.0); MCH 29.7 pg (26.0-34.0); MCHC 35.4 g/dL (28.0-37.0); MONOCYTES 6.1 % (1.0-8.0); PLATELET COUNT 160 thou/uL (150-400); RBC 3.89 mil/uL (4.50-6.00); RDW 14.4 % (10.5-14.5); WBC 7.4 thou/uL (4.0-11.0)
[2017-10-07 14:35] VITALS: BP 152/73
== END 2017-10-07 15:34 | disposition home or self-care (01) | DRG 683 ==
LOC: ER 19:54 → EROBS 22:06 → 4W 22:06
PROVIDERS: Emergency Medicine; Hospitalist; Nurse Practitioner Acute Care
DX: N17.9 Acute kidney failure, unspecified (principal); A04.72 Enterocolitis due to Clostridium difficile, not specified as recurrent; I10 Essential (primary) hypertension; E10.40 Type 1 diabetes mellitus with diabetic neuropathy, unspecified; D64.9 Anemia, unspecified; B18.2 Chronic viral hepatitis C; E88.09 Other disorders of plasma-protein metabolism, not elsewhere classified; E10.65 Type 1 diabetes mellitus with hyperglycemia; F17.210 Nicotine dependence, cigarettes, uncomplicated; E87.6 Hypokalemia; Z90.49 Acquired absence of other specified parts of digestive tract; Z88.8 Allergy status to other drugs, medicaments and biological substances; Z79.899 Other long term (current) drug therapy; Z79.4 Long term (current) use of insulin
CPT/HCPCS: 10045

== ENCOUNTER 2017-10-26 19:49 | Inpatient (IN) | payer OTHER ==
[~2017-10-26] VITALS: Ht 175.3 cm; Wt 77.1 kg
--- NOTE | ~2017-10-26 | P ---
[facility] [place] [address] PROCEDURE REPORT Name: CONSTANTINO MEJIA Room #: 354-P ADM IN M.R.#: [id number] Admission: 10/26/17 Attend Phys: Rodney Shankar MD Discharge: Date of : 74 Report #: [id number] THIS REPORT FOR: //name// CC: TIFFANIE physician/PCP Ignacio Jaime MD DATE OF SERVICE: 10/27/2017 HISTORY OF PRESENT ILLNESS: The patient is a 47-year-old male who was recently hospitalized for abdominal pain, nausea, vomiting. A CT scan at that time showed thickening in the distal esophagus. He underwent an upper endoscopy by my partner, Dr. Olson on 10/21/2017 where he had severe ulcerative esophagitis in the distal esophagus, also had gastritis with a possible mass type lesion. Biopsies came back as negative, also negative for H. pylori. The patient was placed on b.i.d. PPI therapy and Carafate and was discharged; however, he came back in with continued abdominal pain. Of note, he was on IV morphine during last hospitalization, was not on pain medications p.o. on discharge. He does complain of midepigastric and lower chest pain. He does report some mild dysphagia. He denies any diarrhea at this time. He had a fruit morning for breakfast and denies any nausea or vomiting at this time. He had a bowel movement yesterday that had some black streaking to it. Stool hemoccult testing has been ordered, but is pending at this time. PAST MEDICAL HISTORY: Severe erosive esophagitis on recent upper endoscopy, gastroesophageal reflux disease, diabetes, chronic hepatitis C, history of substance abuse, chronic pain, opioid dependent, previous cholecystectomy, history of C. diff. ALLERGIES: LISINOPRIL, DARVOCET, FENTANYL. REVIEW OF SYSTEMS: As per HPI. FAMILY HISTORY: Negative for colon cancer. SOCIAL HISTORY: Does actively smoke. Denies any alcohol use. He has had a history of substance abuse including methamphetamine. PHYSICAL EXAMINATION: VITAL SIGNS: Temperature is 36.8, pulse 90, blood pressure 167/92, respiratory rate is 16. GENERAL: He is alert and oriented x 3, in no acute distress. HEENT: Sclerae nonicteric. Oropharynx clear. NECK: Supple without lymphadenopathy. CARDIOVASCULAR: Regular rate and rhythm. CHEST: Clear to auscultation bilaterally. [facility] [address] [place] [address] PROCEDURE REPORT Name: CONSTANTINO MEJIA Room #: 354-P [facility] IN M.R.#: [id number] Admission: 10/26/17 Attend Phys: Rodney Shankar MD Discharge: Date of : 74 Report #: [id number] ABDOMEN: Soft. He is mildly tender to palpation in the midepigastrium, nondistended, normoactive bowel sounds. EXTREMITIES: No cyanosis, clubbing or edema. LABORATORY DATA: WBC 8.1; hemoglobin 10.9, was 12.5 yesterday; platelet count is 324. Sodium 138, potassium 4.1, chloride 105, bicarbonate 24, BUN 22, creatinine is 1.3, total bilirubin 0.6, calcium 7.9, AST 67, ALT is 82, alkaline phosphatase 179, total protein 6.8, albumin 2.6, lipase 77. CT scan of the abdomen and pelvis on 10/19/2017 showed suspected distal esophagitis with thickening of the distal esophagus. CT otherwise negative. A repeat CT has been ordered for today. ASSESSMENT AND PLAN: 1. Abdominal pain. This may be secondary to the patient's known history of severe esophagitis. He has been on good therapy including b.i.d. PPI therapy and Carafate, which is being continued. Labs are negative. Recent CT otherwise was negative. Repeat CT is pending at this time. 2. Elevated liver function tests, history of hepatitis C. 3. History of possible melenic type stools. Agree with Hemoccult testing stools, which is pending. Thank you for allowing me to participate in his care. <ELECTRONICALLY SIGNED> By: Billy Pina MD 10/29/17 0830 1324 1838 Billy Pina MD /nt
[~2017-10-26 19:49] MED LIST changes: +CARAFATE 1 GM TA1 G1 PO; +PROTONIX40 M1 PO
[2017-10-26 19:50] VITALS: BP 186/92
[2017-10-26 21:05] LABS: ABSOLUTE NEUTROPHILS 5.7 thou/uL (1.4-8.2); BASOPHILS 1.3 % (0.0-2.0); EOSINOPHILS 5.3 % (0.0-3.0); HEMOGLOBIN 12.5 gm/dL (14.0-18.0); LYMPHOCYTES 18.1 % (24.0-44.0); MCH 30.2 pg (26.0-34.0); MCHC 36.9 g/dL (28.0-37.0); MCV 81.8 fL (80.0-100.0); PLATELET COUNT 324 thou/uL (150-400); POLYS 70.3 % (36.0-66.0); RBC 4.16 mil/uL (4.50-6.00); RDW 14.7 % (10.5-14.5); WBC 8.1 thou/uL (4.0-11.0)
[2017-10-26 21:13] LABS: CALCIUM 7.9 mg/dL (8.5-10.1); CREATININE 1.3 mg/dL (0.7-1.3); POTASSIUM 4.1 mmol/L (3.5-5.1)
[2017-10-26 21:21] LABS: ALBUMIN 2.6 g/dL (3.4-5.0); TOTAL BILIRUBIN 0.6 mg/dL (<0.1-1.0); TOTAL PROTEIN 6.8 g/dL (6.4-8.2)
[2017-10-27 06:11] LABS: HEMATOCRIT 31.4 % (42.0-52.0); HEMOGLOBIN 11.4 gm/dL (14.0-18.0)
[2017-10-27 10:54] VITALS: BP 194/98
[2017-10-27 12:53] VITALS: BP 167/92
[2017-10-27 15:00] VITALS: BP 158/90
[2017-10-27 17:33] VITALS: BP 198/111
[2017-10-27 20:00] VITALS: BP 191/105
[2017-10-28 03:09] VITALS: BP 154/95
[2017-10-28 05:00] VITALS: BP 200/113
[2017-10-28 05:58] LABS: ABSOLUTE NEUTROPHILS 3.8 thou/uL (1.4-8.2); BASOPHILS 0.8 % (0.0-2.0); EOSINOPHILS 5.3 % (0.0-3.0); HEMATOCRIT 27.9 % (42.0-52.0); HEMOGLOBIN 10.1 gm/dL (14.0-18.0); LYMPHOCYTES 23.2 % (24.0-44.0); MCH 30.4 pg (26.0-34.0); MCV 84.3 fL (80.0-100.0); MONOCYTES 8.6 % (1.0-8.0); POLYS 62.1 % (36.0-66.0); RBC 3.31 mil/uL (4.50-6.00); RDW 14.2 % (10.5-14.5); WBC 6.1 thou/uL (4.0-11.0)
[2017-10-28 06:08] LABS: PLATELET COUNT 243 thou/uL (150-400)
[2017-10-28 06:34] LABS: POTASSIUM 4.3 mmol/L (3.5-5.1)
[2017-10-28 06:39] LABS: CALCIUM 7.6 mg/dL (8.5-10.1); CREATININE 1.5 mg/dL (0.7-1.3); MAGNESIUM 1.6 mg/dL (1.8-2.4)
[2017-10-28 09:38] VITALS: BP 195/104
[2017-10-28 16:45] VITALS: BP 169/95
[2017-10-28 20:56] VITALS: BP 138/74
[2017-10-29 05:47] VITALS: BP 139/73
[2017-10-29 07:03] LABS: HEMATOCRIT 28.6 % (42.0-52.0); HEMOGLOBIN 10.3 gm/dL (14.0-18.0)
[2017-10-29 08:20] VITALS: BP 167/88
[2017-10-29 11:32] VITALS: BP 117/65
[2017-10-29] MEDS ORDERED: OXYCODONE HCL10 MG PO (16:19)
[2017-10-29] MEDS ORDERED: REGLAN 5 MG TAB5 MG PO (16:19)
[2017-10-29 16:38] VITALS: BP 117/65
== END 2017-10-29 18:44 | disposition home or self-care (01) | DRG 74 ==
LOC: ER 19:49 → 3W 20:17 → EROBS 20:17 → 3W 10-27 12:08
PROVIDERS: Emergency Medicine; Internal Medicine; Internal Medicine Gastroenterology; Nurse Practitioner Acute Care
PROC: B54MZZA Ultrasonography of Right Upper Extremity Veins, Guidance (ICD-10-PCS; principal; 2017-10-27)
PROC: 05HY33Z Insertion of Infusion Device into Upper Vein, Percutaneous Approach (ICD-10-PCS; principal; 2017-10-27)
DX: E11.43 Type 2 diabetes mellitus with diabetic autonomic (poly)neuropathy (principal); K22.10 Ulcer of esophagus without bleeding; K29.70 Gastritis, unspecified, without bleeding; B19.20 Unspecified viral hepatitis C without hepatic coma; F15.10 Other stimulant abuse, uncomplicated; E83.42 Hypomagnesemia; K31.84 Gastroparesis; K21.0 Gastro-esophageal reflux disease with esophagitis; F17.210 Nicotine dependence, cigarettes, uncomplicated; Z71.51 Drug abuse counseling and surveillance of drug abuser; Z91.14 Patient's other noncompliance with medication regimen; Z90.49 Acquired absence of other specified parts of digestive tract; Z79.4 Long term (current) use of insulin; Z79.899 Other long term (current) drug therapy; Z88.8 Allergy status to other drugs, medicaments and biological substances; Z91.018 Allergy to other foods
CPT/HCPCS: 10080; 27001

== ENCOUNTER 2017-11-11 10:56 | Emergency (ER) | payer OTHER ==
[~2017-11-11] VITALS: Ht 175.3 cm; Wt 72.6 kg
--- NOTE | ~2017-11-11 | EKG ---
[place] [address] [facility] [place] [address] ELECTROCARDIOGRAM REPORT Name: CONSTANTINO MEJIA Room #: DEP Alen#: [id number] Admission: 11/11/17 Attend Phys: Discharge: 11/11/17 Date of : 74 Report #: [id number] THIS REPORT FOR: //name// [facility] ED Test Date: 2017-11-11 Test Time: 10:57:17 Pat Name: CONSTANTINO MEJIA Department: Room: Gender: M Rn New Graduate: MG : 1970 Requested By: Alirio Saldana Order Number: [id number] MD: Raymond De La Garza Measurements Intervals [place] Rate: 86 P: 46 ID: 157 QRS: 37 QRSD: 74 T: 76 QT: 371 QTc: 444 Interpretive Statements Sinus rhythm No significant abnormality Compared to ECG 10/20/2017 00:27:51 Sinus tachycardia no longer present ST and T wave abnormality no longer present Electronically Signed On 11-12-2017 8:46:03 CDT by Raymond De La Garza [email or web address] <ELECTRONICALLY SIGNED> By: Raymond De La Garza MD, [facility] 11/12/17 0846 1057 105 Raymond De La Garza MD, FAC /EPI
[~2017-11-11 10:56] MED LIST changes: +REGLAN 5 MG TAB5 MG PO
[2017-11-11 12:56] LABS: HEMATOCRIT 32.5 % (42.0-52.0); HEMOGLOBIN 11.6 gm/dL (14.0-18.0); MCH 30.1 pg (26.0-34.0); MCHC 35.6 g/dL (28.0-37.0); MCV 84.5 fL (80.0-100.0); RBC 3.85 mil/uL (4.50-6.00); RDW 14.6 % (10.5-14.5); WBC 8.4 thou/uL (4.0-11.0)
[2017-11-11 13:11] LABS: CALCIUM 8.4 mg/dL (8.5-10.1); CREATININE 1.2 mg/dL (0.7-1.3); POTASSIUM 4.2 mmol/L (3.5-5.1)
[2017-11-11 13:16] LABS: ALBUMIN 2.3 g/dL (3.4-5.0); TOTAL BILIRUBIN 0.4 mg/dL (<0.1-1.0); TOTAL PROTEIN 6.7 g/dL (6.4-8.2)
[2017-11-11] MEDS ORDERED: NORCO 5-325 TA1 EACH PO (14:27)
== END 2017-11-11 14:40 | disposition home or self-care (01) ==
LOC: ER 10:56
PROVIDERS: Emergency Medicine
DX: R07.89 Other chest pain (principal); F17.210 Nicotine dependence, cigarettes, uncomplicated; E10.40 Type 1 diabetes mellitus with diabetic neuropathy, unspecified; E10.621 Type 1 diabetes mellitus with foot ulcer; L97.429 Non-pressure chronic ulcer of left heel and midfoot with unspecified severity; L97.419 Non-pressure chronic ulcer of right heel and midfoot with unspecified severity; K86.1 Other chronic pancreatitis; Z88.8 Allergy status to other drugs, medicaments and biological substances; Z88.6 Allergy status to analgesic agent; Z91.018 Allergy to other foods; Z90.49 Acquired absence of other specified parts of digestive tract

== ENCOUNTER 2018-03-07 11:41 | Observation (INO) | payer OTHER ==
[~2018-03-07] VITALS: Ht 175.3 cm; Wt 90.7 kg
[2018-03-07 11:42] VITALS: BP 192/117
--- NOTE | 2018-03-07 12:24 | EKG ---
[place] [address] [place] [address] ELECTROCARDIOGRAM REPORT Name: CONSTANTINO MEJIA Room #: MILE Lowry#: [id number] Admission: 03/07/18 Attend Phys: Discharge: Date of : 74 Report #: [id number] THIS REPORT FOR: //name// [facility] ED Test Date: 2018-03-07 Test Time: 11:44:01 Pat Name: CONSTANTINO MEJIA Department: Room: Gender: M Bi Data Modeler: GHADA : 1970 Requested By: Lucas Juarez Order Number: [id number] MD: Robert Mixon Measurements Intervals [employer] Rate: 89 P: 70 [place]: 157 QRS: 38 QRSD: 83 T: 53 QT: 354 QTc: 431 Interpretive Statements Sinus rhythm Poor R-wave progression Nonspecific ST-T wave changes Compared to ECG 11/11/2017 10:57:17 No significant changes Electronically Signed On 03-07-2018 12:23:48 WIDE LOAD ESCORT by Robert Mixon [email or web address] <ELECTRONICALLY SIGNED> By: Robert Mixon MD 03/07/18 1223 1144 1144 Robert Mixon MD /KAROLINA
[2018-03-07 13:06] LABS: ANION GAP 12 mmol/L (7-16); BUN 19 mg/dL (7-18); CALCIUM 8.5 mg/dL (8.5-10.1); CHLORIDE 109 mmol/L (98-107); CO2 20 mmol/L (21-32); CREATININE 1.2 mg/dL (0.7-1.3); GLUCOSE 172 mg/dL (74-106); SODIUM 141 mmol/L (136-145)
[2018-03-07 13:07] LABS: POTASSIUM 4.7 mmol/L (3.5-5.1)
[2018-03-07 13:14] LABS: ALBUMIN 2.6 g/dL (3.4-5.0); LIPASE 119 U/L (73-393); MAGNESIUM 2.1 mg/dL (1.8-2.4); SGOT 51 U/L (15-37); SGPT 48 U/L (30-65); TOTAL BILIRUBIN 0.7 mg/dL (<0.1-1.0); TOTAL PROTEIN 6.8 g/dL (6.4-8.2); TROPONIN-I <0.06 ng/mL (<0.06)
[2018-03-07 13:33] LABS: ABSOLUTE NEUTROPHILS 5.3 thou/uL (1.4-8.2); BASOPHILS 0.8 % (0.0-2.0); HEMATOCRIT 31.7 % (42.0-52.0); HEMOGLOBIN 11.4 gm/dL (14.0-18.0); MCH 31.3 pg (26.0-34.0); MCHC 35.9 g/dL (28.0-37.0); MCV 87.2 fL (80.0-100.0); MONOCYTES 6.3 % (1.0-8.0); PLATELET COUNT 170 thou/uL (150-400); POLYS 75.9 % (36.0-66.0); RBC 3.63 mil/uL (4.50-6.00); RDW 13.3 % (10.5-14.5)
[2018-03-07 14:47] LABS: URINE BILIRUBIN NEGATIVE (Negative); URINE BLOOD 3+ (Negative); URINE CLARITY CLEAR; URINE COLOR YELLOW; URINE GLUCOSE-RANDOM* 1+ (Negative); URINE KETONES 1+ (Negative); URINE LEUKOCYTES-REFLEX NEGATIVE (Negative); URINE NITRITE-REFLEX NEGATIVE (Negative); URINE PROTEIN (DIPSTICK) 3+ (Negative); URINE SPECIFIC GRAVITY 1.025 (1.005-1.035); URINE UROBILINOGEN 0.2 E.U./dl (0.2-1.0)
[2018-03-07 14:55] LABS: AMP/METHAMP Negative (Negative); BARBITURATES Negative (Negative); BENZODIAZEPINES Negative (Negative); COCAINE Negative (Negative); METHADONE Negative (Negative); OPIATES POSITIVE (Negative); PCP Negative (Negative)
[2018-03-07 14:59] LABS: SQUAMOUS 4-10 Moderate /LPF (0-3); URINE RBC 3-10 Few /HPF (0-2); URINE WBC-REFLEX 0-5 Rare /HPF (0-5)
[2018-03-07 15:00] LABS: AMORPHOUS URATES Many /LPF (None Seen); BACTERIA-REFLEX None Seen /HPF (None Seen); FINE GRANULAR CASTS 4-10 Moderate /LPF (None Seen); HYALINE CASTS 0-3 Few /LPF (None Seen)
[2018-03-07 17:29] VITALS: BP 135/87
[2018-03-07 17:30] VITALS: BP 135/87
[2018-03-07 18:30] VITALS: BP 162/74
[2018-03-07 20:00] VITALS: BP 148/81
[2018-03-07] MEDS ORDERED: NEURONTIN300 MG PO (20:46)
--- NOTE | 2018-03-07 23:39 | NUR ---
PT ADMITTED FROM ED WITH C/O UPPER GASTRIC PAIN , PT REFUSED TO PLACED ON ACCOUNT [employer] SALES AND REFUSED TROPININ TO BE DRAWN , ATTEMPTED TO EDUCATE PT ON IMPTORTANT OF FOLLOING MD ORDERS AND TO PROVIDE AND DX PROBLEMES, BUT PT CONITNUE TO REFUSE, CORNELIUS Chavez .NP NOTIFED AND AWARE.
[2018-03-08 02:00] VITALS: BP 149/72
[2018-03-08 06:06] LABS: ABSOLUTE NEUTROPHILS 3.1 thou/uL (1.4-8.2); BASOPHILS 0.9 % (0.0-2.0); EOSINOPHILS 10.5 % (0.0-3.0); HEMATOCRIT 30.7 % (42.0-52.0); HEMOGLOBIN 10.9 gm/dL (14.0-18.0); LYMPHOCYTES 21.7 % (24.0-44.0); MCH 30.8 pg (26.0-34.0); MCHC 35.4 g/dL (28.0-37.0); MONOCYTES 5.9 % (1.0-8.0); PLATELET COUNT 170 thou/uL (150-400); RBC 3.53 mil/uL (4.50-6.00); RDW 13.3 % (10.5-14.5)
[2018-03-08 06:20] LABS: ANION GAP 9 mmol/L (7-16); BUN 24 mg/dL (7-18); CALCIUM 8.1 mg/dL (8.5-10.1); CHLORIDE 110 mmol/L (98-107); CO2 22 mmol/L (21-32); CREATININE 1.4 mg/dL (0.7-1.3); GLUCOSE 172 mg/dL (74-106); MAGNESIUM 2.2 mg/dL (1.8-2.4); POTASSIUM 4.4 mmol/L (3.5-5.1); SODIUM 141 mmol/L (136-145); TROPONIN-I <0.06 ng/mL (<0.06)
[2018-03-08 07:34] VITALS: BP 157/67
--- NOTE | 2018-03-08 11:10 | NUR ---
ASSUMED CARE OF PT AT 0700. A/OX4, PAIN MANAGED WITH MEDICATIONS, COMPLIANT WITH CARES, NPO FOR EGD THIS MORNING. USES CALL LIGHT APPROPRIATELY. CONTINUE TO MONITOR
[2018-03-08 13:20] VITALS: BP 139/79
[2018-03-08] MEDS ORDERED: PROTONIX40 M1 PO (15:42)
[2018-03-08] MEDS ORDERED: CARVEDILOL25 MG PO (15:42)
[2018-03-08] MEDS ORDERED: CARAFATE 11 GM/10 M1 PO (15:42)
[2018-03-08] MEDS ORDERED: NEURONTIN300 MG PO (15:42)
[2018-03-08] MEDS ORDERED: REGLAN 5 MG TAB5 MG PO (15:42)
[2018-03-08 16:00] VITALS: BP 139/79
--- NOTE | 2018-03-08 16:30 | NUR ---
SEE SCANNED VS FOR REASSESSMENT INFORMATION
--- NOTE | 2018-03-08 16:33 | NUR ---
Received request to make transportation arrangements for pt. Spoke with pt and he gave address of [address] [place] [address] [employer], [address], [place] [address]. Called [facility] and arranged transportation between and 1929. The shag truck driver will call the floor when he is on his way. Information given to nurse and community health advisor. Case Management will not vouch for medications. Pt has active Medicaid. [facility] [phone]; trip #[phone]
[2018-03-08 16:35] VITALS: BP 139/79
--- NOTE | 2018-03-11 14:08 | PATH ---
[facility] [address] [address] PATHOLOGY RPT PROCEDURE Name: CONSTANTINO MEJIA Room #: 459-P LEONA Lowry#: [id number] Admission: 03/07/18 Date of : 74 Discharge: 03/08/18 Report #: [id number] Path Case #: [id number] [facility] Accession Number: [id number] . 01 Material submitted: . PART A: BX OF GASTRITIS PART B: BX OF DISTAL ESOPHAGUS RO R/O BARRETTS . 01 Clinical history: . Dysphagia . 02 Diagnosis: A. Gastric mucosa, gastritis, endoscopic biopsy: - Mild focal chronic inflammation. - Negative for intestinal metaplasia or atrophy. - Negative Helicobacter pylori (properly-controlled immunohistochemical stain performed). . B. Gastroesophageal mucosa, distal esophagus, rule out Reed's, endoscopic biopsy: - Gastric fundic-type mucosa with moderate acute inflammation. - Squamous mucosa with mild esophagitis and changes compatible with reflux. - No definite intestinal metaplasia or dysplasia present. . (IUV:mml; 03/09/18) QLM/03/09/2018 . 02 Electronically signed: . Rehana Clemons MD, Pathologist NPI- [id number] . 01 Gross description: . A. Received in formalin labeled "Constantino Mejia, BX of gastritis," are 3 segments of palacios soft tissue measuring 1.1 x 0.7 x 0.1 cm in aggregate dimensions and ranging from 0.4 to 0.5 cm in maximum dimension. The specimen is submitted entirely in cassette A1. . B. Received in formalin labeled "Constantino Mejia, BX of distal esophagus, rule out Reed's," are 2 segments of palacios soft tissue measuring 0.8 x 0.2 x 0.3 cm in aggregate dimensions and ranging from 0.3 to 0.5 cm in maximum dimension. The specimen is submitted entirely in cassette B1. (TSD; 03/08/2018) TOB/TOB . 02 Pathologist provided ICD-10: K29.50, K29.00, K20.9, K21.9 [place] [address] PATHOLOGY RPT PROCEDURE Name: CONSTANTINO MEJIA Room #: 459-P DIS Yaneth M.RCherelle#: [id number] Admission: 03/07/18 Date of : 74 Discharge: 03/08/18 Report #: [id number] Path Case #: [id number] . 02 [facility] . [id number], [id number], [id number] Specimen Comment: A courtesy copy of this report has been sent to Specimen Comment: [phone], . Specimen Comment: Report sent to / DR EMMANUEL Specimen Comment: A duplicate report has been generated due to demographic updates. Performed at: [address] [facility], [place], [place] [id number] MD Sina Carlin MD Phone: [phone] Performed at: [address] [facility] [id number] MD Rehana Clemons MD Phone: [phone]
--- NOTE | 2018-04-27 10:01 | P ---
[place] [address] PROCEDURE REPORT Name: CONSTANTINO MEJIA Room #: 459- LEONA Lowry#: [id number] Admission: 03/07/18 Attend Phys: Seth Madison MD Discharge: 03/08/18 Date of : 74 Report #: [id number] THIS REPORT FOR: //name// CC: TIFFANIE physician/PCP Seth Madison MD DATE OF SERVICE: 03/07/2018 PROCEDURE PERFORMED: Upper endoscopy with biopsies and esophageal dilation. HISTORY OF PRESENT ILLNESS: The patient is a 48-year-old male with a history of gastroesophageal reflux disease, on b.i.d. PPI therapy and Carafate, also with a history of gastroparesis. Plan is for upper endoscopy. DESCRIPTION OF PROCEDURE: The risks and benefits of the procedure were explained to the patient, those risks including but not limited to bleeding, perforation, the risk of sedation. He understood these risks and gave informed consent. Sedation was given using propofol per anesthesia. Next, using a standard Olympus upper endoscope, the scope was placed in the patient's mouth and advanced under direct vision through the esophagus, stomach and into the second portion of the duodenum. The upper and mid esophagus normal in appearance. In the distal esophagus, grade A erosive esophagitis was noted. A small nodule was also noted in the distal esophagus. Biopsies were obtained. No evidence of stricture. There was a mild gastritis noted. No evidence of ulcerations, no erosions. Biopsies obtained to rule out H. pylori. Small amount of liquid was noted in the stomach. No evidence of food. The pylorus was normal and patent. The duodenal bulb, first and second portion were all normal. The scope was then brought back up into the patient's stomach and a Savary guidewire was inserted through the scope, leaving the guidewire in place as the scope was then withdrawn. Next, a 48-[address] [employer] Savary dilation of the esophagus was then performed without difficulty. The wire and dilator removed. The scope was reintroduced into the patient's stomach. No evidence of mucosal tear was noted after dilation. The scope was then withdrawn and the procedure terminated. The patient tolerated the procedure well. IMPRESSION: 1. Grade A erosive esophagitis. 2. Small nodule of distal esophagus. 3. Mild gastritis. 4. Otherwise, normal upper endoscopy. RECOMMENDATIONS: 1. Await biopsy results. 2. Continue b.i.d. PPI therapy. Would recommend Carafate 4 times a day and continue Reglan, which was just restarted. [address] [address] PROCEDURE REPORT Name: CONSTANTINO MEJIA Room #: [address] [place] [address] Yaneth Lowry#: [id number] Admission: 03/07/18 Attend Phys: Seth Madison MD Discharge: 03/08/18 Date of : 74 Report #: [id number] Thank you for allowing me to participate in his care. <ELECTRONICALLY SIGNED> By: Billy Pina MD 04/27/18 1001 1202 2001 Billy Pina MD /nt
[2018-05-25] MEDS ORDERED: TOUJEO SOL300 UNIT/1 SUBQ ×2 (11:26→14:49)
[2018-05-25] MEDS ORDERED: COZAAR 25 MG TA25 M1 PO (11:26)
[2018-05-25] MEDS ORDERED: FLOMAX0.4 MG PO (11:27)
[2018-05-25] MEDS ORDERED: VENLAFAXINE HC150 M1 PO (11:28)
[2018-05-25] MEDS ORDERED: AMLODIPINE BESY10 MG PO (11:29)
[2018-05-25] MEDS ORDERED: LASIX 80 MG TAB80 MG PO (11:29)
[2018-05-25] MEDS ORDERED: HYDRALAZINE 2525 MG PO ×2 (11:29→11:41)
== END 2018-03-08 17:46 | disposition home or self-care (01) ==
LOC: ER 11:41 → EROBS 15:00 → 4W 15:00
PROVIDERS: Emergency Medicine; Nurse Practitioner; ADMIT Hospitalist
DX: K22.10 Ulcer of esophagus without bleeding (principal); K29.70 Gastritis, unspecified, without bleeding; I16.0 Hypertensive urgency; R79.89 Other specified abnormal findings of blood chemistry; E10.43 Type 1 diabetes mellitus with diabetic autonomic (poly)neuropathy; K31.84 Gastroparesis; I10 Essential (primary) hypertension; F17.210 Nicotine dependence, cigarettes, uncomplicated; Z79.4 Long term (current) use of insulin; Z79.899 Other long term (current) drug therapy
CPT/HCPCS: 62110; 62900; 70005

== ENCOUNTER 2018-05-19 08:47 | Emergency (ER) | payer OTHER ==
[~2018-05-19] VITALS: Ht 175.3 cm; Wt 90.7 kg
[~2018-05-19 08:47] MED LIST changes: +CARAFATE 11 GM/10 M1 PO
[2018-05-19 09:26] LABS: URINE CLARITY CLOUDY; URINE COLOR RED; URINE PROTEIN (DIPSTICK) 3+ (Negative)
[2018-05-19 09:27] LABS: URINE BILIRUBIN NEGATIVE (Negative); URINE BLOOD 3+ (Negative); URINE GLUCOSE-RANDOM* 3+ (Negative); URINE KETONES NEGATIVE (Negative); URINE LEUKOCYTES-REFLEX NEGATIVE (Negative); URINE NITRITE-REFLEX NEGATIVE (Negative); URINE UROBILINOGEN 0.2 E.U./dl (0.2-1.0)
[2018-05-19 09:30] LABS: BACTERIA-REFLEX 1-9 Few /HPF (None Seen); CASTS None Seen /LPF (None Seen); CRYSTALS None Seen /LPF (None Seen); SQUAMOUS None Seen /LPF (0-3); URINE RBC >20 Many /HPF (0-2); URINE WBC-REFLEX 0-5 Rare /HPF (0-5)
[2018-05-19] MEDS ORDERED: BACTRIM DS TAB1 EACH PO (10:04)
[2018-05-19 10:30] VITALS: BP 181/71
== END 2018-05-19 10:32 | disposition home or self-care (01) ==
LOC: ER 08:47
PROVIDERS: Physician Assistant
DX: R31.9 Hematuria, unspecified (principal); E10.40 Type 1 diabetes mellitus with diabetic neuropathy, unspecified; G62.9 Polyneuropathy, unspecified; K86.1 Other chronic pancreatitis; F17.210 Nicotine dependence, cigarettes, uncomplicated; Z88.8 Allergy status to other drugs, medicaments and biological substances; Z91.018 Allergy to other foods; Z88.4 Allergy status to anesthetic agent; Z90.49 Acquired absence of other specified parts of digestive tract